=== PATIENT | female | born 1950 | race Asian ===

== ENCOUNTER 2018-04-27 06:08 | Day surgery (SDC) | payer OTHER ==
[2018-04-27] MEDS ORDERED: EPHEDrine SULFATE 50 MG/5 ML SYG (07:00)
[2018-04-27] MEDS ORDERED: CA CHLORIDE 10% 10 ML SYRINGE (07:00)
[2018-04-27] MEDS ORDERED: CEFAZOLIN 2 GM/50 ML (PMX) 50 ML IVPB (11:00)
[2018-04-27] MEDS ORDERED: SOD CHLORIDE 0.9% 1,000 ML IV (11:00)
[2018-04-27] MEDS ORDERED: GLYCOPYRROLATE 0.4 MG INJ (12:06)
[2018-04-27] MEDS ORDERED: NEOSTIGMINE 3 MG/3 ML SYRINGE (12:06)
[2018-04-27] MEDS ORDERED: ROCURONIUM 50 MG INJ (12:06)
[2018-04-27] MEDS ORDERED: FENTAnyl 50 MCG/ML VIAL (12:06)
[2018-04-27] MEDS ORDERED: PROPOFOL 20 ML (12:06)
[2018-04-27] MEDS ORDERED: MIDAZOLAM 1 MG/ML 2 ML INJ (12:06)
[2018-04-27] MEDS ORDERED: CEFAZOLIN 1 GM INJ ×2 (12:06→12:30)
[2018-04-27] MEDS ORDERED: ONDANSETRON 4 MG INJ (12:07)
[2018-04-27] MEDS ORDERED: DEXAMETHASONE 4 MG/ML 1 ML INJ (12:08)
[2018-04-27] MEDS ORDERED: PHENYLephrine (100 MCG/ML) 5ML SYG (12:31)
[2018-04-27] MEDS ORDERED: SUGAMMADEX SODIUM 200 MG/2 ML VIAL IV (12:36)
[2018-04-27] MEDS: BUPIVACAINE 0.5% (SDV) 30 ML INJ (13:20)
[2018-04-27] MEDS: HYDROCODONE/APAP (5/325) TAB PO (14:38)
== END 2018-04-27 15:15 | disposition home or self-care (01) ==
LOC: SDS 06:08
DX: N60.92 Unspecified benign mammary dysplasia of left breast (principal); I10 Essential (primary) hypertension; E11.9 Type 2 diabetes mellitus without complications; M54.9 Dorsalgia, unspecified
CPT/HCPCS: 14001; 82962; 88307